=== PATIENT | female | born 1980 | race Caucasian/White ===

== ENCOUNTER 2021-03-31 17:49 | Emergency (ER) | payer SELFPAY ==
[2021-03-31 19:09] VITALS: BP 149/98; PULSE 96; TEMP 97; BMI 20.1
== END 2021-03-31 20:35 | disposition home or self-care (01) ==
LOC: JERFT 17:49 → JER 17:49 → JERFT 20:35
DX: N61.0 Mastitis without abscess (principal)
CPT/HCPCS: 99281-25